=== PATIENT | female | born 1945 ===

== ENCOUNTER → 2017-10-27 | Outpatient (CLI) | payer OTHER | LOC: NPA 12:00 | DX: R69 Illness, unspecified (principal) ==

== ENCOUNTER → 2017-11-03 | Outpatient (CLI) | payer OTHER ==
[2017-11-03 17:41] LABS: HEMATOCRIT 32.7 % (34.2-44.1); HEMOGLOBIN 10.4 g/dL (12.0-16.0); MEAN CORPUSCULAR HGB CONC 31.8 g/dL (31-35); MEAN CORPUSCULAR VOLUME 97.6 fL (81-99); RED BLOOD COUNT 3.35 x10e6/uL (3.6-5.1)
[2017-11-03 17:42] LABS: BASOPHILS # (AUTO) 0.1 (0.0-0.1); BASOPHILS % 0.9 % (0.0-1.0); EOSINOPHILS # (AUTO) 0.2 (0.0-0.4); EOSINOPHILS % 3.6 % (0.0-6.0); LYMPHOCYTES # (AUTO) 1.5 (1.0-3.2); MONOCYTES # (AUTO) 0.8 (0.2-0.8); MONOCYTES % 13.8 % (4.4-11.3); NEUTROPHILS % 53.8 % (38.7-80.0); PLATELET COUNT 444 x10e3/uL (140-360); RED CELL DISTRIBUTION WIDTH 13.6 % (11.7-14.4)
[2017-11-10 17:31] LABS: BASOPHILS # (AUTO) 0.1 (0.0-0.1); BASOPHILS % 0.9 % (0.0-1.0); EOSINOPHILS # (AUTO) 0.3 (0.0-0.4); EOSINOPHILS % 4.3 % (0.0-6.0); HEMOGLOBIN 9.5 g/dL (12.0-16.0); LYMPHOCYTES # (AUTO) 1.4 (1.0-3.2); LYMPHOCYTES % 20.7 % (18.0-39.1); MEAN CORPUSCULAR HEMOGLOBIN 27.2 pg (28-32); MEAN CORPUSCULAR HGB CONC 32.8 g/dL (31-35); MEAN CORPUSCULAR VOLUME 83.1 fL (81-99); MONOCYTES # (AUTO) 0.5 (0.2-0.8); MONOCYTES % 8.1 % (4.4-11.3); NEUTROPHILS # (AUTO) 4.3 (2.1-6.9); NEUTROPHILS % 65.2 % (38.7-80.0); PLATELET COUNT 120 x10e3/uL (140-360); RED BLOOD COUNT 3.49 x10e6/uL (3.6-5.1); RED CELL DISTRIBUTION WIDTH 17.4 % (11.7-14.4)
== END ==
LOC: NPA 09:00
PROVIDERS: ATTEND Internal Medicine
DX: R69 Illness, unspecified (principal)
CPT/HCPCS: 36415; 85025

== ENCOUNTER → 2017-11-10 | Outpatient (CLI) | payer OTHER | LOC: NPA 09:00 | PROVIDERS: ATTEND Internal Medicine | DX: Z02.89 Encounter for other administrative examinations (principal) ==